=== PATIENT | female | born 1985 | race Caucasian/White ===

== ENCOUNTER 2017-05-18 09:00 | Inpatient (IN) | payer MEDICAID ==
[~2017-05-18] VITALS: Ht 172.7 cm; Wt 114.5 kg
[2017-05-18 09:26] VITALS: BP 125/64; PULSE 63; RESP 18; Ht 172.7 cm; Wt 114.5 kg
[2017-05-18] MEDS ORDERED: LACTATED RINGER'S 1,000 ML IV SCH (11:29)
[2017-05-18] MEDS ORDERED: METHYLERGONOVINE 0.2 MG INJ IM PRN (11:30)
[2017-05-18] MEDS ORDERED: OXYTOCIN 30 UNITS/LR 500 ML IV PRN (11:30)
[2017-05-18] MEDS ORDERED: LIDOCAINE 1% (MPF) 30 ML INJ INJ PRN (11:30)
[2017-05-18] MEDS ORDERED: IBUPROFEN 600 MG TAB PO PRN (11:30)
[2017-05-18] MEDS ORDERED: OXYTOCIN 30 UNITS/LR 500 ML IV SCH ×3 (11:30)
[2017-05-18] MEDS ORDERED: BUTORPHANOL 2 MG INJ IV PRN (11:30)
[2017-05-18] MEDS ORDERED: MISOPROSTOL 200 MCG TAB PR PRN (11:30)
[2017-05-18] MEDS ORDERED: CARBOPROST 250 MCG INJ IM PRN (11:30)
--- NOTE | 2017-05-18 11:59 | TRIAGE ---
OB Triage Datetime Report Generated by CPN: 05/18/2017 11:59 Datetime: 05/18/2017 10:20 Labor Evaluation Frequency: 6 Monitor Mode: External Duration (sec)2399: 50 Quality: Moderate Pattern: Normal: <= 5 Contractions in 10 Minutes Resting Tone [place]: Relaxed Heart Rate FHR Baseline Rate: 130 Monitor Mode: External US FHR Baseline Changes: No Baseline Change Variability: Moderate 6-25 bpm Accelerations: 15X15 Decelerations: None Category: Category I Datetime: 05/18/2017 09:27 Vaginal Exam Dilatation (cms): 3.0 Effacement (%): 50 Station: -4 Exam By: je abdullahic Vaginal Bleeding: None Cervix, Consistency: Soft Cervix, Position: Posterior Presentation 'A': Cephalic Datetime: 05/18/2017 09:22 Stage of : OB Triage Maternal Assessment Level of Consciousness: Fully Conscious DTR's/Clonus: DTRs 2+; No Clonus Headache: Denies Blurred Vision: No Respiratory Effort: Unlabored; Regular Rhythm; Equal Expansion Breath Sounds, Left: Clear and Equal Breath Sounds, Right: Clear and Equal Nausea/Vomiting: Denies RUQ Epigastric Pain: Denies Lower Extremities Edema: Bilateral Lower Extremities Degree: 1+ Upper Extremities Edema: None Degree: None Facial Edema: None Temperature Route: Axillary Fall Risk Assessment History of Falling: (0) No Secondary Diagnosis: (0) No Ambulatory Aid: (0) Bedrest/Nurse Assist IV Therapy: (0) No Gait: (0) Normal/Bedrest/Immobile Mental Status: (0) Oriented to Own Ability Fall Score: 0 Fall Risk Score Definition: No Risk: No action required Heart Rate FHR Baseline Rate: 130 Monitor Mode: External US Pain Assessment Pain Scale: 4 Pain Presence: Intermittent Pain Type: Contraction Pain Location: Abdomen Pain Relief Measures: Comfort Measures Datetime: 05/18/2017 09:21 EGA: 38.0 Time Provider Notified: 05/18/2017 10:20 Provider Notified: Robin Datetime: 05/18/2017 09:19 Time of Arrival: 05/18/2017 09:19 Chief Complaint: contractions Movement: Present Time Contractions Began: 05/18/2017 04:30 Rupture of Membranes: Denies Vaginal Bleeding: None Vaginal Discharge: Denies Recent Sexual Intercouse: Denies Abdominal Trauma: Not Applicable Patient Complaints: Contractions Time Provider Notified: 05/18/2017 10:00 Provider Notified: DR MERCEDES Initial Plan: efm/ gavi
[2017-05-18 12:08] LABS: ADD SCAN DIFF NO
[2017-05-18 12:28] LABS: INR 0.88; PROTIME 11.9 Sec (12.2-14.2); PT RATIO 0.9
[2017-05-18 12:36] LABS: BASOPHILS % 0.4 % (0.0-2.0); EOSINOPHILS # 0.1 10^3/ul (0.0-0.5); EOSINOPHILS % 0.7 % (0.0-7.0); HEMATOCRIT 36.3 % (37.0-47.0); HEMOGLOBIN 12.6 g/dl (12.0-16.0); LYMPHOCYTES % 24.2 % (15.0-51.0); MEAN CORPUSCULAR HEMOGLOBIN 30.4 pg (29.0-33.0); MEAN CORPUSCULAR HGB CONC 34.7 g/dl (32.0-37.0); MEAN CORPUSCULAR VOLUME 87.7 fl (82.0-101.0); MEAN PLATELET VOLUME 9.6 fl (7.4-10.4); MONOCYTE # 0.6 10^3/ul (0.3-0.9); MONOCYTES % 7.1 % (0.0-11.0); NEUTROPHIL # 5.5 10^3/ul (1.6-7.5); NEUTROPHILS % 66.9 % (39.0-77.0); PLATELET COUNT 243 10^3/UL (140-415); RED BLOOD COUNT 4.14 10^6/ul (4.20-5.40); RED CELL DISTRIBUTION WIDTH 13.2 % (11.5-14.5); WHITE BLOOD COUNT 8.2 10^3/ul (4.8-10.8)
[2017-05-18] MEDS ORDERED: LACTATED RINGER'S 1,000 ML IV PRN (13:00)
--- NOTE | 2017-05-18 17:11 | CONS ---
Date/Time of Note Date/Time of Note DATE: 05/18/17 TIME: 17:11 Assessment/Plan Assessment/Plan Additional Assessment/Plan 31 yo F with pmhx CVA sp earlier today. Hospitalist service consulted for TYSON x 2 years. Clinically headaches sound similar to migraines given unilaterality, aura, exacerbation by loud noises or bright lights. Neurologic exam at this time nonfocoal. However, given CVA hx, not unreasonable to eval for possible TIA given facial numbness episode earlier today. BP normal so no concern for preeclampsia. No reported epidural prior to delivery so no concern for spinal headache PLAN -CT head ordered by OB service -tele monitoring -check TTE -consider MRI brain -APAP/NSAIDs for pain control defer triptans for now -will check BMP in case decision is made tomorrow to pursue contrast enhanced imaging hospitalist service will cont to follow Consultation Date/Type/Reason Admit Date/Time May 18, 2017 at 11:19 Type of Consultation: hospitalist Reason for Consultation headache Referring Provider: FATMATA MERCEDES MD Hx of Present Illness 31 yo F sp earlier today with past history of ?stroke 2 yrs ago shortly after a previous with TYSON x 2 years. Pt states that after she had her last baby 2 years ago, while still in the hospital she had an episode of L sided arm/leg "paralysis" that ultimately persisted for 2 mos. She was diagnosed with a stroke and underwent extensive physical therapy with no residual deficits. She states she was told the stroke was due to stress. Since that time the patient has had frequent L sided headaches, which have been getting more frequent over the past 2 mos. Pt denies any fevers or chills. No loss of vision but does report occasional halos/auras during episodes. Also headaches are worsened by loud noises and bright lights. Has not been previously diagnosed with migraines. Pt mentioned her headaches to her OB during her and was told it was likely 2/2 dehydration. Also of note, following her delivery pt had a 2 hr episode of L sided facial tingling, no weakness and no facial droop per patient and family. No weakness. 10pROS as per HPI Past Medical History previous stroke Social History lives in the community Smoking Status: Never smoker Exam/Review of Systems Vital Signs Vitals Vital Signs Date Time Temp Pulse Resp B/P Pulse Ox O2 Delivery O2 Flow Rate FiO2 05/18/17 09:26 97.8 63 18 125/64 Room Air Exam nad, sitting up in bed EOMI MMM CN 2-12 intact-->no decreased sensation over L side of face no mrg lungs clear abd soft no le edema no hypereflexia of achilles or patellaes 5/5 strength bl U and LEs Results Result Diagram: 05/18/17 1156 Results 24 hrs Laboratory Tests Test 05/18/17 11:56 White Blood Count 8.2 Red Blood Count 4.14 L Hemoglobin 12.6 Hematocrit 36.3 L Mean Corpuscular Volume 87.7 Mean Corpuscular Hemoglobin 30.4 Mean Corpuscular Hemoglobin Concent 34.7 Red Cell Distribution Width 13.2 Platelet Count 243 Mean Platelet Volume 9.6 Neutrophils % 66.9 Lymphocytes % 24.2 Monocytes % 7.1 Eosinophils % 0.7 Basophils % 0.4 Nucleated Red Blood Cells % 0.0 Neutrophils # 5.5 Lymphocytes # 2.0 Monocytes # 0.6 Eosinophils # 0.1 Basophils # 0.0 Nucleated Red Blood Cells # 0.0 Prothrombin Time 11.9 L Prothrombin Time Ratio 0.9 INR International Normalized Ratio 0.88 Activated Partial Thromboplast Time 29.0 Hepatitis B Surface Antigen NEGATIVE Medications Medications Current Medications Lactated Ringer's 1,000 ml @ 125 mls/hr Q8H IV Last administered on 05/18/17 12:09; Admin Dose 125 MLS/HR; Start 05/18/17 at 11:29 Oxytocin/Lactated Ringer's 500 ml @ 0 mls/hr TITRATE IV Last administered on 12:34; Admin Dose 1 MLS/HR; Start 05/18/17 at 11:30 Butorphanol Tartrate (Stadol) 1 mg Q2H PRN IV PAIN; Start 05/18/17 at 11:30 Lidocaine 30 ml 30 ml ONCE PRN INJ EPISIOTOMY/TEARING; Start 05/18/17 at 11:30 Oxytocin/Lactated Ringer's 500 ml @ 125 mls/hr ONCE IV ; Start 05/18/17 at 11: 30 Ibuprofen 600 mg 600 mg ONCE PRN PO Mild Pain (Pain Score 1-3); Start 05/18/17 at 11:30 Lactated Ringer's 1,000 ml @ 2,000 mls/hr Q30M PRN IV PRE-EPIDURAL BOLUS; Start 05/18/17 at 13:00 Oxytocin/Lactated Ringer's 500 ml @ 0 mls/hr ONCE PRN IV For Hemorrhage Management; Start 05/18/17 at 11:30 Methylergonovine Maleate (Methergine) 0.2 mg ONCE PRN IM VAGINAL BLEEDING; Start 05/18/17 at 11:30 Carboprost Tromethamine (Hemabate) 250 mcg ONCE PRN IM VAGINAL BLEEDING; Start 05/18/17 at 11:30 Misoprostol (Cytotec) 1,000 mcg ONCE PRN [place] VAGINAL BLEEDING; Start 05/18/17 at 11:30 Acetaminophen (Tylenol Tab) 650 mg ONCE ONCE PO ; Start 05/18/17 at 17:30; Stop 05/18/17 at 17:31 ASHLEY MARI MD May 18, 2017 17:11
[2017-05-18] MEDS ORDERED: ACETAMINOPHEN 325 MG TAB PO ONE (17:30)
--- NOTE | 2017-05-18 17:41 | LDN ---
Date/Time of Note Date/Time of Note DATE: 05/18/17 TIME: 17:37 Delivery Summary Normal spontaneous vaginal delivery of a baby boy from OP position shoulders delivered without any difficulty rest of the baby's body followed cord was clamped after stopped pulsation placenta spontaneous expulsion inspected complete blood loss 250 cc perineal vaginal exam no laceration noted Weeks of Gestation 38 weeks Placenta Delivered: Spontaneously Meconium: none Episiotomy: No Anesthesia type: None Estimated blood loss: 250 Sponge & Needle done & correct: Yes All needle counts correct: Yes Any foreign bodies felt in the: No Problems: Delivery Information Sex Infant Sex: male Apgars 1 Minute: 8 5 Minute: 9 Suctioning Nose & mouth suctioned at neno: Yes Delee suction performed: No Umbilical Cord Umbilical cord with: 3 Vessels Cord presentations: no nuchal cord Cord Blood was obtained: Yes FATMATA MERCEDES MD May 18, 2017 17:40
--- NOTE | 2017-05-18 18:15 | HP ---
Date/Time of Note Date/Time of Note DATE: 05/18/17 TIME: 17:41 OB - History Hx of Present Free Text/Dictation 31 years old female from [facility] admitted to [facility] in labor she is a 4 para 2 SAB1, pelvic examination on admission cervix 3 cm dilated 50% effaced vertex at -3 -4 station category 1 heart rate less than 5 contractions in10 minutes This patient has been under the care of the [facility] this was not complicated with hypertension gestational diabetes or any other surgical or medical condition. Her past history total of 4 2 normal vaginal delivery 1 SAB even though patient is not a good historian but through her relatives acting as motor vehicle parts interpreter we found that ischemic brain attack, after the delivery of her baby she stated she was paralyzed on her left side was kept in the hospital for 2 days then was sent home and received physiotherapy at home recovered after 2 months she has never mentioned anything regarding her stroke during the first visit which she received at community clinic, nor in my office none is recorded in her medical history. During this her blood pressure has been within normal range and no complaint blurry vision lightheaded weakness and extremities or any warning signs and symptoms Chief Complaint: Labor pain Estimated Due Date: Jun 01, 2017 : 4 Para: 2 Spontaneous : 1 Care: Limited Care Ultrasounds: Normal mid trimester US Medical Complications: Neurological Past Family/Social History * Past Medical, Surgical, Family and Obstetric Histories reviewed from chart. Rubella: immune RPR/VDRL: Negative GBS Status: Negative HBsAG: Negative OB Admission Exam Vital Signs Vital Signs Vital Signs Date Time Temp Pulse Resp B/P Pulse Ox O2 Delivery O2 Flow Rate FiO2 05/18/17 09:26 97.8 63 18 125/64 Room Air Physical Exam HEENT: WNL Heart: Rhythm Normal Lungs: Clear, Equal Abdomen: WNL Extremities: Normal Reflexes: Normal Cervical Dilatation: 3cm Effacement: 50% Station: -2 Membranes: Intact Heart Rate: 130's Accelerations: Accelerations Present Decelerations: No Decelerations Varibility: Moderate Contractions on Admission: < 5 Minutes Apart Intensity: Moderate Last 72 hours Lab Results CBC & BMP 05/18/17 11:56 OB Assessment/Plan Reason for admission: other (Patient has a history of brain ischemia after the delivery of her last baby she will get brain scan, and neurology consult after delivering her baby) Plan: Expectant Management FATMATA MERCEDES MD May 18, 2017 17:52
--- NOTE | 2017-05-18 20:47 | RADRPT ---
PROCEDURE: CT brain without contrast CLINICAL INDICATION: Headaches, history of stroke, TECHNIQUE: CT of the brain without contrast was performed on a multidetector CT scanner, with multi planar reformats. One or more of the following dose reduction techniques were used: Automated expos ure control, adjustment in mA and / or kV according to patient size, use of iterative reconstructive technique. CTDIvol = 44 mGy; DLP = 720 mGy-cm. COMPARISON: None available FINDINGS: No acute intracranial hemorrhage is identified. No extra-axial fluid collection is seen. There is no mass effect. No midline shift is identified. Ventricles and sulci are within normal limits for size and configuration. The density of the brain is unremarkable. Quispe-white differentiation is preserved. Osseous structures are unremarkable. Mastoid air cells and imaged paranasal sinuses grossly clear. IMPRESSION: Unremarkable noncontrast CT of the brain. RPTAT: HESO .Logan Yang MD, MD Date Time Electronically viewed and signed by .Logan Yang MD, MD on 05/18/2017 20:47 .O/
[2017-05-18 22:10] VITALS: BP 127/61; PULSE 70; RESP 17
[2017-05-18] MEDS ORDERED: ACETAMINOPHEN 325 MG TAB PO PRN (23:30)
[2017-05-18] MEDS ORDERED: LANOLIN 7 GM TUBE TOP PRN (23:30)
[2017-05-18] MEDS ORDERED: ONDANSETRON 4 MG INJ IV PRN (23:30)
[2017-05-18] MEDS ORDERED: OXYCODONE/ASPIRIN (4.88/325) TAB PO PRN ×2 (23:30)
[2017-05-18] MEDS ORDERED: ACETAMINOPHEN/CODEINE #3 TAB PO PRN ×2 (23:30)
[2017-05-18] MEDS ORDERED: BENZOCAINE 20% 56 ML SPRAY TOP PRN (23:30)
[2017-05-18] MEDS ORDERED: WITCH HAZEL/GLYCERIN PAD PR PRN (23:30)
[2017-05-18] MEDS ORDERED: DIBUCAINE 1% 30 GM OINT PR PRN (23:30)
[2017-05-19 00:30] VITALS: BP 125/65; PULSE 80; RESP 17
[2017-05-19] MEDS: IBUPROFEN 600 MG TAB PO SCH ×5 (00:30→22:57)
[2017-05-19] MEDS: OXYTOCIN 30 UNITS/LR 500 ML IV SCH ×3 (01:10→05:42)
[2017-05-19 04:00] VITALS: BP 121/63; PULSE 60; RESP 17
[2017-05-19 08:30] VITALS: BP 128/55; PULSE 60; RESP 18
[2017-05-19] MEDS: SENNA/DOCUSATE NA (8.6MG/50MG) TAB PO SCH ×2 (08:47→22:57)
--- NOTE | 2017-05-19 09:59 | PN ---
Date/Time of Note Date/Time of Note DATE: 05/19/17 TIME: 09:58 OB Subjective Subjective Subjective day 1 Afebrile vital signs stable abdomen soft uterus firm lochia normal extremity normal ambulation encouraged Laboratory Tests Test 05/18/17 11:56 White Blood Count 8.210^3/ul Red Blood Count 4.1410^6/ul Hemoglobin 12.6g/dl Hematocrit 36.3% Mean Corpuscular Volume 87.7fl Mean Corpuscular Hemoglobin 30.4pg Mean Corpuscular Hemoglobin Concent 34.7g/dl Red Cell Distribution Width 13.2% Platelet Count 19538^3/UL Mean Platelet Volume 9.6fl Neutrophils % 66.9% Lymphocytes % 24.2% Monocytes % 7.1% Eosinophils % 0.7% Basophils % 0.4% Nucleated Red Blood Cells % 0.0/100WBC Neutrophils # 5.510^3/ul Lymphocytes # 2.010^3/ul Monocytes # 0.610^3/ul Eosinophils # 0.110^3/ul Basophils # 0.010^3/ul Nucleated Red Blood Cells # 0.010^3/ul Prothrombin Time 11.9Sec Prothrombin Time Ratio 0.9 INR International Normalized Ratio 0.88 Activated Partial Thromboplast Time 29.0Sec Rapid Plasma Reagin NONREACTIVE Hepatitis B Surface Antigen NEGATIVE Current Medications Medications (Trade) Dose Ordered Sig/Fawad Route PRN Reason Start Time Stop Time Status Last Admin Dose Admin Lactated Ringer's 1,000 ml @ 125 mls/hr Q8H IV 05/18/17 11:29 05/18/17 23:26 DC 05/18/17 12:09 Oxytocin/Lactated Ringer's 500 ml @ 0 mls/hr TITRATE IV 05/18/17 11:30 05/18/17 23:26 DC 05/18/17 12:34 Butorphanol Tartrate (Stadol) 1 mg Q2H PRN IV PAIN 05/18/17 11:30 05/18/17 23:26 DC Lidocaine 30 ml 30 ml ONCE PRN INJ EPISIOTOMY/TEARING 05/18/17 11:30 05/18/17 23:26 DC Oxytocin/Lactated Ringer's 500 ml @ 125 mls/hr ONCE -MAY REPEAT X1 IV 05/18/17 11:30 05/18/17 23:26 DC 05/18/17 16:57 Oxytocin/Lactated Ringer's 500 ml @ 125 mls/hr ONCE IV 05/18/17 11:30 05/18/17 23:26 DC 05/18/17 21:54 Ibuprofen 600 mg 600 mg ONCE PRN PO Mild Pain (Pain Score 1-3) 05/18/17 11:30 05/18/17 23:26 DC Lactated Ringer's 1,000 ml @ 2,000 mls/hr Q30M PRN IV PRE-EPIDURAL BOLUS 05/18/17 13:00 05/18/17 23:26 DC Oxytocin/Lactated Ringer's 500 ml @ 0 mls/hr ONCE PRN IV For Hemorrhage Management 05/18/17 11:30 05/18/17 23:26 DC Methylergonovine Maleate (Methergine) 0.2 mg ONCE PRN IM VAGINAL BLEEDING 05/18/17 11:30 Carboprost Tromethamine (Hemabate) 250 mcg ONCE PRN IM VAGINAL BLEEDING 05/18/17 11:30 Misoprostol (Cytotec) 1,000 mcg ONCE PRN [place] VAGINAL BLEEDING 05/18/17 11:30 Acetaminophen 650 mg 650 mg ONCE ONCE PO 05/18/17 17:30 05/18/17 17:31 DC 05/18/17 17:15 Oxytocin/Lactated Ringer's 500 ml @ 125 mls/hr Q4H IV 05/18/17 23:22 05/19/17 07:21 DC 05/19/17 05:42 Ibuprofen (Motrin) 600 mg Q6 PO 05/19/17 00:00 05/19/17 05:35 Acetaminophen (Tylenol Tab) 650 mg Q4H PRN PO PAIN LEVEL 1-5 05/18/17 23:30 Acetaminophen/ Codeine Phosphate (Tylenol No.3) 1 tab Q4H PRN PO PAIN LEVEL 1-5 05/18/17 23:30 Acetaminophen/ Codeine Phosphate (Tylenol No.3) 2 tab Q4H PRN PO PAIN LEVEL 6-10 05/18/17 23:30 Oxycodone/Aspirin (Percodan) 1 tab Q3H PRN PO PAIN LEVEL 1-5 05/18/17 23:30 Oxycodone/Aspirin (Percodan) 2 tab Q3H PRN PO PAIN LEVEL 6-10 05/18/17 23:30 Ondansetron HCl (Zofran Inj) 4 mg Q6H PRN IV NAUSEA AND/OR VOMITING 05/18/17 23:30 Senna/Docusate Sodium (Senokot-S) 1 tab BID PO 05/19/17 09:00 05/19/17 08:47 Witch Gudelia/ Glycerin (Tucks Pads) 1 pad BEDSIDE MEDICATION PRN WI HEMORRHOID/EPISIOTMY PAIN 05/18/17 23:30 05/19/17 00:37 Benzocaine (Dermoplast [place]) 1 spray BEDSIDE MEDICATION PRN TOP HEMORRHOID/EPISIOTMY PAIN 05/18/17 23:30 05/19/17 00:36 Dibucaine (Nupercainal) 1 applic BEDSIDE MEDICATION PRN WI HEMORRHOID/EPISIOTMY PAIN 05/18/17 23:30 Lanolin (Rot-O-Ixuhwo) 1 applic BEDSIDE MEDICATION PRN TOP BEDSIDE FOR MARIE TO NIPPLES 05/18/17 23:30 05/19/17 00:33 Measles/Mumps/ Rubella Vaccine Live (Mmr Ii Vaccine) 0.5 ml ONCE ONCE SC* 05/20/17 09:00 05/20/17 09:01 FATMATA MERCEDES MD May 19, 2017 09:58
[2017-05-19 11:02] LABS: ADD SCAN DIFF NO
[2017-05-19 11:09] LABS: BASOPHILS % 0.2 % (0.0-2.0); EOSINOPHILS # 0.1 10^3/ul (0.0-0.5); EOSINOPHILS % 0.6 % (0.0-7.0); HEMATOCRIT 33.3 % (37.0-47.0); LYMPHOCYTES # 1.8 10^3/ul (0.8-2.9); LYMPHOCYTES % 19.7 % (15.0-51.0); MEAN CORPUSCULAR HEMOGLOBIN 29.1 pg (29.0-33.0); MEAN CORPUSCULAR VOLUME 88.1 fl (82.0-101.0); MEAN PLATELET VOLUME 9.9 fl (7.4-10.4); MONOCYTE # 0.7 10^3/ul (0.3-0.9); MONOCYTES % 7.7 % (0.0-11.0); NEUTROPHIL # 6.4 10^3/ul (1.6-7.5); NEUTROPHILS % 71.1 % (39.0-77.0); PLATELET COUNT 214 10^3/UL (140-415); RED BLOOD COUNT 3.78 10^6/ul (4.20-5.40); RED CELL DISTRIBUTION WIDTH 13.5 % (11.5-14.5)
[2017-05-19 11:26] LABS: CALCIUM 8.9 mg/dl (8.4-10.2); CREATININE 0.58 mg/dl (0.44-1.00); POTASSIUM 3.8 mmol/L (3.5-5.1)
--- NOTE | 2017-05-19 11:27 | RADRPT ---
Echocardiogram Report Patient Name: HANNA LEIVA Gender: Female Date: 1985 Study Date: 19-May-2017 Casino Accountant: Leatha Diamond [facility] Location: [id number] Ref. Physician: IZA SYLVESTER Quality: Good Procedures: Transthoracic echocardiogram with complete 2D, M-Mode, and doppler examination. Indications: Transient Ischemic Attack. 2D/M Mode Doppler Measurement Value Normal Ranges Measurement Value Normal Ranges LVIDd 2D 4.4 3.5 - 5.6 cm AV Peak Yannick 1.7 m/sec LVIDs 2D 2.6 2.1 - 4.1 cm AV Peak PG 12.2 mmHg LVPWd 2D 1.0 0.6 - 1.1 cm LVOT Peak Yannick 1.1 m/sec IVSd 2D 1.0 0.6 - 1.1 cm LVOT Peak PG 4.7 mmHg AoR Diam 2D 2.3 2.0 - 3.7 cm MV E Peak Yannick 1.0 m/sec EDV 2D 88.0 cm3 MV A Peak Yannick 0.7 m/sec ESV 2D 17.4 cm3 MV E/A 1.6 LA Dimen 2D 3.4 2.3 - 4.0 cm MV Decel Time 150 msec MV Decel [place] 7 MV E/A 1.6 TR Peak Yannick 1.9 m/sec TR Peak PG 15.0 mmHg RVSP 23.0 mmHg Findings Left Ventricle: Normal left ventricular systolic function. Normal left ventricular cavity size. Normal left ventricular wall thickness. Ejection fraction is visually estimated at 55 %. Tissue Doppler/Mitral Doppler indices are within normal limits. Right Ventricle: Normal right ventricular size. Normal right ventricular systolic function. Left Atrium: The left atrium is normal in size. Right Atrium: Right atrium at upper limits of normal. Mitral Valve: Normal appearance and function of the mitral valve with trace physiologic regurgitation. Aortic Valve: Normal appearance of the aortic valve. No significant aortic stenosis or insufficiency. Tricuspid Valve: Normal appearance of the tricuspid valve. Estimated peak PA systolic pressure 35 mmHg. There is trace to mild tricuspid regurgitation. Pulmonic Valve: Normal pulmonic valve appearance. Pericardium: Normal pericardium with no significant pericardial effusion. Aorta: Normal aortic root. IVC: Normal size and normal respiratory collapse consistent with normal right atrial pressure. Conclusions 1.Normal left ventricular systolic function. Normal left ventricular cavity size. Normal left ventricular wall thickness. Ejection fraction is visually estimated at 55 %. Tissue Doppler/Mitral Doppler indices are within normal limits. 2.No significant valvular stenosis or regurgitation seen. 3.Right atrium at upper limits of normal. No obvious PFO or intracardiac shunt seen. 4.Estimated peak PA systolic pressure 35 mmHg based on RA pressure of 3 mmHg. Electronically Signed By: Tyrell Cedeno 19-May-2017 11:26:54 -0700 Patient Name: HANNA LEIVA Study Date: 19-May-2017 [id number]
--- NOTE | 2017-05-19 14:56 | PN ---
Date/Time of Note Date/Time of Note DATE: 05/19/17 TIME: 14:55 Assessment/Plan Lines/Catheters IV Catheter Type (from Nrsg): Peripheral IV Assessment/Plan Chief Complaint/Hosp Course NOTE WRONG TYPE Problems: Subjective 24 Hr Interval Summary Free Text/Dictation Azeri language line used to facilitate communication Not much improvement in headaches Exam/Review of Systems Vital Signs Vitals Vital Signs Date Time Temp Pulse Resp B/P Pulse Ox O2 Delivery O2 Flow Rate FiO2 05/19/17 08:30 98.3 60 18 128/55 Room Air Intake and Output 05/18/17 05/18/17 05/19/17 15:00 23:00 07:00 Intake Total 1000 ml 900 ml Output Total 900 ml Balance 100 ml 900 ml Exam nad, sitting up in bed no mrg lungs clear abd soft no rashes Results Result Diagram: 05/19/1755 05/19/1731 Results 24 hrs Laboratory Tests Test 05/19/17 09:31 05/19/17 09:55 Sodium Level 128 L Potassium Level 3.8 Chloride Level 101 Carbon Dioxide Level 25 Anion Gap 6 L Blood Urea Nitrogen 6 L Creatinine 0.58 Glucose Level 65 L Calcium Level 8.9 White Blood Count 9.0 Red Blood Count 3.78 L Hemoglobin 11.0 L Hematocrit 33.3 L Mean Corpuscular Volume 88.1 Mean Corpuscular Hemoglobin 29.1 Mean Corpuscular Hemoglobin Concent 33.0 Red Cell Distribution Width 13.5 Platelet Count 214 Mean Platelet Volume 9.9 Neutrophils % 71.1 Lymphocytes % 19.7 Monocytes % 7.7 Eosinophils % 0.6 Basophils % 0.2 Nucleated Red Blood Cells % 0.0 Neutrophils # 6.4 Lymphocytes # 1.8 Monocytes # 0.7 Eosinophils # 0.1 Basophils # 0.0 Nucleated Red Blood Cells # 0.0 Medications Medications Current Medications Methylergonovine Maleate (Methergine) 0.2 mg ONCE PRN IM VAGINAL BLEEDING; Start 05/18/17 at 11:30 Carboprost Tromethamine (Hemabate) 250 mcg ONCE PRN IM VAGINAL BLEEDING; Start 05/18/17 at 11:30 Misoprostol (Cytotec) 1,[address] VAGINAL BLEEDING; Start 05/18/17 at 11:30 Ibuprofen (Motrin) 600 mg Q6 PO Last administered on 05/19/17t 12:07; Admin Dose 600 MG; Start 05/19/17 at 00:00 Acetaminophen (Tylenol Tab) 650 mg Q4H PRN PO PAIN LEVEL 1-5; Start 05/18/17 at 23:30 Acetaminophen/ Codeine Phosphate (Tylenol No.3) 1 tab Q4H PRN PO PAIN LEVEL 1-5 ; Start 05/18/17 at 23:30 Acetaminophen/ Codeine Phosphate (Tylenol No.3) 2 tab Q4H PRN PO PAIN LEVEL 6- 10; Start 05/18/17 at 23:30 Oxycodone/Aspirin (Percodan) 1 tab Q3H PRN PO PAIN LEVEL 1-5; Start 05/18/17 at 23:30 Oxycodone/Aspirin (Percodan) 2 tab Q3H PRN PO PAIN LEVEL 6-10; Start 05/18/17 at 23:30 Ondansetron HCl (Zofran Inj) 4 mg Q6H PRN IV NAUSEA AND/OR VOMITING; Start 09/24 at 23:30 Senna/Docusate Sodium (Senokot-S) 1 tab BID PO Last administered on 05/19/17 08:47; Admin Dose 1 TAB; Start 05/19/17 at 09:00 Measles/Mumps/ Rubella Vaccine Live (Mmr Ii Vaccine) 0.5 ml ONCE ONCE SC* ; Start 05/20/17 at 09:00; Stop 05/20/17 at 09:01 ASHLEY MARI MD May 19, 2017 14:55 10; Start 05/18/17 at 23:30 Oxycodone/Aspirin (Percodan) 1 tab Q3H PRN PO PAIN LEVEL 1-5; Start 05/18/17 at 23:30 Oxycodone/Aspirin (Percodan) 2 tab Q3H PRN PO PAIN LEVEL 6-10; Start 05/18/17 at 23:30 Ondansetron HCl (Zofran Inj) 4 mg Q6H PRN IV NAUSEA AND/OR VOMITING; Start 09/24 at 23:30 Senna/Docusate Sodium (Senokot-S) 1 tab BID PO Last administered on 05/19/17 08:47; Admin Dose 1 TAB; Start 05/19/17 at 09:00 Measles/Mumps/ Rubella Vaccine Live (Mmr Ii Vaccine) 0.5 ml ONCE ONCE SC* ; Start 05/20/17 at 09:00; Stop 05/20/17 at 09:01 ASHLEY MARI MD May 19, 2017 14:55
[2017-05-19] MEDS ORDERED: ASA/ACETAMINOPHEN/CAFF TAB PO ONE (15:00)
--- NOTE | 2017-05-19 15:24 | CONS ---
Date/Time of Note Date/Time of Note DATE: 05/19/17 TIME: 15:23 Assessment/Plan Assessment/Plan Additional Assessment/Plan 31 yo F with pmhx CVA sp 7.11. Hospitalist service consulted for TYSON x 2 years. Clinically headaches sound similar to migraines given unilaterality, aura, exacerbation by loud noises or bright lights. Neurologic exam at this time nonfocoal. However, given CVA hx, not unreasonable to eval for possible TIA given facial numbness episode earlier today. BP normal so no concern for preeclampsia. No reported epidural prior to delivery so no concern for spinal headache Given lack of improvement with analgesics, need to rule out more serious intracranial pathology (ie sinus venous thrombosis) PLAN -neuroimaging: MRI brain wwo, MRA brain, MRA neck, MRV brain -tele monitoring/EKG -APAP/NSAIDs for pain control trial of excedrin x 1 hospitalist service will cont to follow Reference Cally Melchor et al. " headache: is your work-up complete?." [place] journal of obstetrics and gynecology 196.4 (2007): 318-e1. Consultation Date/Type/Reason Admit Date/Time May 18, 2017 at 11:19 Initial Consult Date Type of Consultation: hospitalist Referring Provider: FATMATA MERCEDES MD 24 HR Interval Summary Free Text/Dictation Nigerian language line used to facilitate communication Pt reports no improvement in headaches despite NSAIDs or APAP Exam/Review of Systems Vital Signs Vitals Vital Signs Date Time Temp Pulse Resp B/P Pulse Ox O2 Delivery O2 Flow Rate FiO2 05/19/17 08:30 98.3 60 18 128/55 Room Air Intake and Output 05/18/17 05/18/17 05/19/17 14:59 22:59 06:59 Intake Total 1000 ml 900 ml Output Total 900 ml Balance 100 ml 900 ml Exam nad, sitting up in bed no mrg lungs clear abd soft no le edema Results Result Diagram: 05/19/1755 05/19/17 0931 Results 24 hrs Laboratory Tests Test 05/19/17 09:31 05/19/17 09:55 Sodium Level 128 L Potassium Level 3.8 Chloride Level 101 Carbon Dioxide Level 25 Anion Gap 6 L Blood Urea Nitrogen 6 L Creatinine 0.58 Glucose Level 65 L Calcium Level 8.9 White Blood Count 9.0 Red Blood Count 3.78 L Hemoglobin 11.0 L Hematocrit 33.3 L Mean Corpuscular Volume 88.1 Mean Corpuscular Hemoglobin 29.1 Mean Corpuscular Hemoglobin Concent 33.0 Red Cell Distribution Width 13.5 Platelet Count 214 Mean Platelet Volume 9.9 Neutrophils % 71.1 Lymphocytes % 19.7 Monocytes % 7.7 Eosinophils % 0.6 Basophils % 0.2 Nucleated Red Blood Cells % 0.0 Neutrophils # 6.4 Lymphocytes # 1.8 Monocytes # 0.7 Eosinophils # 0.1 Basophils # 0.0 Nucleated Red Blood Cells # 0.0 Medications Medications Current Medications Methylergonovine Maleate (Methergine) 0.2 mg ONCE PRN IM VAGINAL BLEEDING; Start 05/18/17 at 11:30 Carboprost Tromethamine (Hemabate) 250 mcg ONCE PRN IM VAGINAL BLEEDING; Start 05/18/17 at 11:30 Misoprostol (Cytotec) 1,000 mcg ONCE PRN IN VAGINAL BLEEDING; Start 05/18/17 at 11:30 Ibuprofen (Motrin) 600 mg Q6 PO Last administered on 05/19/17 12:07; Admin Dose 600 MG; Start 05/19/17 at 00:00 Acetaminophen (Tylenol Tab) 650 mg Q4H PRN PO PAIN LEVEL 1-5; Start 05/18/17 at 23:30 Acetaminophen/ Codeine Phosphate (Tylenol No.3) 1 tab Q4H PRN PO PAIN LEVEL 1-5 ; Start 05/18/17 at 23:30 Acetaminophen/ Codeine Phosphate (Tylenol No.3) 2 tab Q4H PRN PO PAIN LEVEL 6- 10; Start 05/18/17 at 23:30 Oxycodone/Aspirin (Percodan) 1 tab Q3H PRN PO PAIN LEVEL 1-5; Start 05/18/17 at 23:30 Oxycodone/Aspirin (Percodan) 2 tab Q3H PRN PO PAIN LEVEL 6-10; Start 05/18/17 at 23:30 Ondansetron HCl (Zofran Inj) 4 mg Q6H PRN IV NAUSEA AND/OR VOMITING; Start 09/24 at 23:30 Senna/Docusate Sodium (Senokot-S) 1 tab BID PO Last administered on 05/19/17 08:47; Admin Dose 1 TAB; Start 05/19/17 at 09:00 Measles/Mumps/ Rubella Vaccine Live (Mmr Ii Vaccine) 0.5 ml ONCE ONCE SC* ; Start 05/20/17 at 09:00; Stop 05/20/17 at 09:01 Procedures Procedures TTE nl NCCT head nl ASHLEY MARI MD May 19, 2017 15:24
[2017-05-19 16:00] VITALS: BP 113/61; PULSE 60; RESP 18
[2017-05-19 20:00] VITALS: BP 104/56; PULSE 72; RESP 20
--- NOTE | 2017-05-19 22:41 | RADRPT ---
PROCEDURE: MR venogram. CLINICAL INDICATION: 39-week . Evaluate for venous thrombosis. TECHNIQUE: MR venography of the dural venous sinuses and cortical veins as well as proximal neck v enous vasculature performed with 2-D [id number], MIPPED, and 3-D reconstructed images. COMPARISON: No prior studies are available for comparison. FINDINGS: Nonspecific narrowing of the inferior portion of the superior sagittal sinus just above the torcular herophili, likely flow-related. No evidence of occlusion. There is trace flow noted in the inferio r sagittal sinus. This may be developmental in nature or reflect partial occlusion. The transverse sinuses, sagittal sinus, straight sinus, vena cava, internal cerebral veins, and cortical draining veins are otherwise patent without evidence of dural venous or cortical venous thrombosis. The sigmoid sinuses, internal jugular bulbs, and proximal internal jugular veins are patent without filling defect to suggest venous thrombosis. IMPRESSION: 1. Nonspecific narrowing of the inferior portion of the superior sagittal sinus likely flow related , however, nonocclusive thrombus cannot be excluded. Trace flow demonstrated in the inferior sagit leland sinus. This may reflect slow flow are partial occlusion . The remaining dural venous sinuses a nd cortical veins are patent. 2. Contrast-enhanced MRI of the brain is recommended for further evaluation with diffusion weighted sequences RPTAT:AAJJ Physician Katia Date Time Electronically viewed and signed by Physician Katia on 05/19/2017 22:41 LIAN/
--- NOTE | 2017-05-19 22:51 | RADRPT ---
PROCEDURE: MR Brain with and without contrast, MRA brain with and without contrast, MRA neck with and without contrast. CLINICAL INDICATION: There is an old female with TIA/ headache. TECHNIQUE: An MRI of the brain was performed with and without contrast utilizing the following seq uences: Sagittal T1 weighted, sagittal FLAIR, axial T1, axial FLAIR, axial T2 weighted, axial diffu dora weighted (EPI technique [id number]), axial ADC mapping, and post contrast axial and coronal T1 weig hted, and axial FLAIR. MRA head: 3-D [id number] imaging with and without contrast through the c erebral vasculature with MIP reconstructions. MRA neck: An MRA of the major cervical arteries was p erformed with and without contrast utilizing axial 2D time of flight. Source and MIPPED images were reviewed. 20 cc of Magnevist was given intravenously without complication. Images were reviewed on a high-resolution PACS workstation. COMPARISON: No prior studies are available for comparison. FINDINGS: MRI brain: Diffusion weighted sequences demonstrate no evidence of acute lacunar or lobar infarctio n. There is no intracranial hemorrhage, extra-axial fluid collection, mass lesion, midline shift or hydrocephalous. The ventricles, sulci and cisterns are normal in size and configuration. The basal cisterns are patent. The signal intensity is normal throughout the cerebrum, brain stem and cerebe llum. Normal flow voids are visible the proximal intracranial arteries and dural sinuses, indicatin g patency. The midline structures are intact. The postcontrast images demonstrate diffuse pachymeni ngeal enhancement involving the leptomeninges of the bilateral cerebral hemispheres as well as the t entorial leaflet. No focal areas of nodular enhancement are seen. There is homogeneous enhancement in the pituitary gland. No evidence of pituitary apoplexy. The paranasal sinuses, mastoid air cells and middle ear cavities are normally aerated. The orbits, calvarium and extracranial soft tissues are normal in appearance. MRA head: Anterior circulation: The petrous and cavernous segments of the internal carotid arterie s are normal in appearance. The supraclinoid internal carotid arteries are normal in appearance. T he middle and anterior cerebral arteries as well as their branches are normal. The anterior communi cating artery is patent. The right posterior communicating artery is patent. There is origin of the left posterior cerebral artery, normal variant. Posterior circulation: The vertebral arteries are codominant. The basilar artery and its branches are normal in appearance. The posterior cerebral arteries are normal in appearance. There is no an eurysm, hemodynamically significant stenosis or vascular malformation. Limited visualization of the remaining brain parenchyma is unremarkable. There is no intracranial hemorrhage, mass lesion or hy drocephalous. MRA neck: The common carotid arteries are patent and normal in caliber. The carotid bulbs appear n ormal, and no hemodynamically significant stenosis is evident within either internal carotid artery. The cervical segments of the internal carotid arteries are normal in appearance. The vertebral arteries are patent and normal in caliber bilaterally. The vertebral arteries are cod ominant There is no evidence of vascular stenosis, dissection, aneurysm or occlusion. The visualized neck soft tissues are unremarkable. IMPRESSION: 1. Diffuse patchy meningeal enhancement overlying the bilateral cerebral hemispheres, which is nons pecific. This is most suggestive of etiologies such as intracranial hypotension with other etiologi es including idiopathic pachymeningitis not excluded. Correlation with possible CSF leak is recommen ded. 2. No acute intracranial abnormality. No intracranial hemorrhage, enhancing mass lesion, infarctio n or hydrocephalous. No evidence of pituitary apoplexy. 3. Normal MRA of the head with and without contrast. No aneurysm, hemodynamically significant sten osis or vascular malformation. 4. Normal MRA of the neck with and without contrast. No aneurysm, dissection or hemodynamically si gnificant stenosis. RPTAT: HGAS .Marciano Dejesus MD, MD Date Time Electronically viewed and signed by .Marciano Dejesus MD, on 05/19/2017 22:50 .S/
--- NOTE | 2017-05-19 22:52 | RADRPT ---
PROCEDURE: MR Brain with and without contrast, MRA brain with and without contrast, MRA neck with and without contrast. CLINICAL INDICATION: 31-year-old female with TIA/ headache. TECHNIQUE: An MRI of the brain was performed with and without contrast utilizing the following seq uences: Sagittal T1 weighted, sagittal FLAIR, axial T1, axial FLAIR, axial T2 weighted, axial diffu dora weighted (EPI technique [id number]), axial ADC mapping, and post contrast axial and coronal T1 weig hted, and axial FLAIR. MRA head: 3-D [id number] imaging with and without contrast through the c erebral vasculature with MIP reconstructions. MRA neck: An MRA of the major cervical arteries was p erformed with and without contrast utilizing axial 2D time of flight. Source and MIPPED images were reviewed. 20 cc of Magnevist was given intravenously without complication. Images were reviewed on a high-resolution PACS workstation. COMPARISON: No prior studies are available for comparison. FINDINGS: MRI brain: Diffusion weighted sequences demonstrate no evidence of acute lacunar or lobar infarctio n. There is no intracranial hemorrhage, extra-axial fluid collection, mass lesion, midline shift or hydrocephalous. The ventricles, sulci and cisterns are normal in size and configuration. The basal cisterns are patent. The signal intensity is normal throughout the cerebrum, brain stem and cerebe llum. Normal flow voids are visible the proximal intracranial arteries and dural sinuses, indicatin g patency. The midline structures are intact. The postcontrast images demonstrate diffuse pachymeni ngeal enhancement involving the leptomeninges of the bilateral cerebral hemispheres as well as the t entorial leaflet. No focal areas of nodular enhancement are seen. There is homogeneous enhancement in the pituitary gland. No evidence of pituitary apoplexy. The paranasal sinuses, mastoid air cells and middle ear cavities are normally aerated. The orbits, calvarium and extracranial soft tissues are normal in appearance. MRA head: Anterior circulation: The petrous and cavernous segments of the internal carotid arterie s are normal in appearance. The supraclinoid internal carotid arteries are normal in appearance. T he middle and anterior cerebral arteries as well as their branches are normal. The anterior communi cating artery is patent. The right posterior communicating artery is patent. There is origin of the left posterior cerebral artery, normal variant. Posterior circulation: The vertebral arteries are codominant. The basilar artery and its branches are normal in appearance. The posterior cerebral arteries are normal in appearance. There is no an eurysm, hemodynamically significant stenosis or vascular malformation. Limited visualization of the remaining brain parenchyma is unremarkable. There is no intracranial hemorrhage, mass lesion or hy drocephalous. MRA neck: The common carotid arteries are patent and normal in caliber. The carotid bulbs appear n ormal, and no hemodynamically significant stenosis is evident within either internal carotid artery. The cervical segments of the internal carotid arteries are normal in appearance. The vertebral arteries are patent and normal in caliber bilaterally. The vertebral arteries are cod ominant There is no evidence of vascular stenosis, dissection, aneurysm or occlusion. The visualized neck soft tissues are unremarkable. IMPRESSION: 1. Diffuse patchy meningeal enhancement overlying the bilateral cerebral hemispheres, which is nons pecific. This is most suggestive of etiologies such as intracranial hypotension with other etiologi es including idiopathic pachymeningitis not excluded. Correlation with possible CSF leak is recommen ded. 2. No acute intracranial abnormality. No intracranial hemorrhage, enhancing mass lesion, infarctio n or hydrocephalous. No evidence of pituitary apoplexy. 3. Normal MRA of the head with and without contrast. No aneurysm, hemodynamically significant sten osis or vascular malformation. 4. Normal MRA of the neck with and without contrast. No aneurysm, dissection or hemodynamically si gnificant stenosis. RPTAT: HGAS .Marciano Dejesus MD, MD Date Time Electronically viewed and signed by .Marciano Dejesus MD, on 05/19/2017 22:51 .S/
[2017-05-20] MEDS: IBUPROFEN 600 MG TAB PO SCH ×3 (05:38→18:00)
[2017-05-20 08:20] VITALS: BP 121/54; PULSE 57; RESP 16
[2017-05-20] MEDS ORDERED: MEASLES,MUMPS,RUBELLA VACCINE INJ SC* ONE (09:00)
[2017-05-20] MEDS: SENNA/DOCUSATE NA (8.6MG/50MG) TAB PO SCH (09:59)
--- NOTE | 2017-05-20 11:15 | CONS ---
Date/Time of Note Date/Time of Note DATE: 05/20/17 TIME: 11:13 Assessment/Plan Assessment/Plan Additional Assessment/Plan BRIEF NOTE Pt not personally seen today Neuroimaging results reviewed. Findings highly nonspecific. Suspect etio of pt' s headaches is migraines, but given nonspecific findings, I have placed a consult to neurology service/Dr Isai Hunt for further eval Hospitalist service will cont to follow Consultation Date/Type/Reason Admit Date/Time May 18, 2017 at 11:19 Type of Consultation: hospitalist Referring Provider: FATMATA MERCEDES MD Exam/Review of Systems Vital Signs Vitals Vital Signs Date Time Temp Pulse Resp B/P Pulse Ox O2 Delivery O2 Flow Rate FiO2 05/20/17 08:20 97.9 57 16 121/54 Room Air Results Result Diagram: 05/19/17 0955 05/19/17 0931 Medications Medications Current Medications Methylergonovine Maleate (Methergine) 0.2 mg ONCE PRN IM VAGINAL BLEEDING; Start 05/18/17 at 11:30 Carboprost Tromethamine (Hemabate) 250 mcg ONCE PRN IM VAGINAL BLEEDING; Start 05/18/17 at 11:30 Misoprostol (Cytotec) 1,000 mcg ONCE PRN [place] VAGINAL BLEEDING; Start 05/18/17 at 11:30 Ibuprofen (Motrin) 600 mg Q6 PO Last administered on 05/20/17t 05:38; Admin Dose 600 MG; Start 05/19/17 at 00:00 Acetaminophen (Tylenol Tab) 650 mg Q4H PRN PO PAIN LEVEL 1-5; Start 05/18/17 at 23:30 Acetaminophen/ Codeine Phosphate (Tylenol No.3) 1 tab Q4H PRN PO PAIN LEVEL 1-5 ; Start 05/18/17 at 23:30 Acetaminophen/ Codeine Phosphate (Tylenol No.3) 2 tab Q4H PRN PO PAIN LEVEL 6- 10; Start 05/18/17 at 23:30 Oxycodone/Aspirin (Percodan) 1 tab Q3H PRN PO PAIN LEVEL 1-5; Start 05/18/17 at 23:30 Oxycodone/Aspirin (Percodan) 2 tab Q3H PRN PO PAIN LEVEL 6-10; Start 05/18/17 at 23:30 Ondansetron HCl (Zofran Inj) 4 mg Q6H PRN IV NAUSEA AND/OR VOMITING; Start 09/24 at 23:30 Senna/Docusate Sodium (Senokot-S) 1 tab BID PO Last administered on 05/20/17t 09:59; Admin Dose 1 TAB; Start 05/19/17 at 09:00 ASHLEY MARI MD May 20, 2017 11:15
--- NOTE | 2017-05-20 12:21 | DS ---
Date/Time of Note Date/Time of Note DATE: 05/20/17 TIME: 12:16 Discharge Summary Admission/Discharge Info Admit Date/Time May 18, 2017 at 11:19 Discharge Date/Time May 20, 2017 at 12:15 PM Discharge Diagnosis Day 2 post normal vaginal delivery Patient Condition: Good Consults Neurology consult Procedures Normal vaginal delivery, brain MRI, history of headache and TIA with last , will be followed that neurology clinic Hx of Present Illness Term normal vaginal delivery Hospital Course Unremarkable no complaint of headache blurry vision extremities weakness, refer to MRI report Follow-up Plan follow-up in the office and follow up with neurologist in outpatient basis Primary Care Provider Care Physician FATMATA Reilly MD May 20, 2017 12:20
--- NOTE | 2017-05-20 16:34 | RADRPT ---
Vent Rate: 60 bpm RR Interval: 0 msec [place] Interval: 156 msec QRS Duration: 94 msec QT Interval: 406 msec QTC Interval: 406 msec P-R-T [place]: 39 - 40 - 47 degrees Normal sinus rhythm Low voltage QRS Incomplete right bundle branch block Borderline ECG Electronically Signed By: Daniel Purvis [id number]
== END 2017-05-20 19:00 | disposition home or self-care (01) | DRG 774 ==
LOC: L-D 09:00 → OBT 09:00 → L-D 11:19 → PP1 22:18
PROVIDERS: ADMIT Obstetrics & Gynecology; ATTEND Obstetrics & Gynecology
PROC: 10E0XZZ Delivery of Products of Conception, External Approach (ICD-10-PCS; principal; 2017-05-18)
PROC: 4A1HX4Z Monitoring of Products of Conception, Cardiac Electrical Activity, External Approach (ICD-10-PCS; 2017-05-18)
DX: O90.89 Other complications of the puerperium, not elsewhere classified (principal); R20.2 Paresthesia of skin; Z37.0 Single live birth; Z3A.38 38 weeks gestation of pregnancy; Z86.73 Personal history of transient ischemic attack (TIA), and cerebral infarction without residual deficits
CPT/HCPCS: 70450; 70546; 70549; 70551; 70553; 80048; 85025; 85610; 85730; 86592; 86900; 86901; 87340; 88307; 93005; 93306; 99464; G0463; J2590; J7120

== ENCOUNTER 2019-09-03 06:31 | Inpatient (IN) | payer OTHER ==
[~2019-09-03] VITALS: Ht 165.1 cm; Wt 118.5 kg
[2019-09-03 06:38] VITALS: Ht 165.1 cm; Wt 118.5 kg
[2019-09-03] MEDS ORDERED: LACTATED RINGER'S 1,000 ML IV PRN (06:40)
[2019-09-03] MEDS ORDERED: LACTATED RINGER'S 1,000 ML IV SCH (06:40)
[2019-09-03] MEDS ORDERED: AMPICILLIN 2 GM/NS (PMX) 100 ML IV ONE (07:00)
[2019-09-03] MEDS ORDERED: OXYTOCIN 30 UNITS/LR 500 ML IV PRN ×2 (07:00→10:30)
[2019-09-03] MEDS ORDERED: MISOPROSTOL 200 MCG TAB PR PRN ×2 (07:00→10:30)
[2019-09-03] MEDS ORDERED: LIDOCAINE 1% (MPF) 30 ML INJ INJ PRN (07:00)
[2019-09-03] MEDS ORDERED: CARBOPROST 250 MCG INJ IM PRN ×2 (07:00→10:30)
[2019-09-03] MEDS ORDERED: BUTORPHANOL 2 MG INJ IV PRN (07:00)
[2019-09-03] MEDS ORDERED: METHYLERGONOVINE 0.2 MG INJ IM PRN ×2 (07:00→10:30)
[2019-09-03] MEDS ORDERED: MINERAL OIL LIGHT 10 ML VIAL TOP PRN (07:00)
[2019-09-03] MEDS ORDERED: OXYTOCIN 30 UNITS/LR 500 ML IV SCH ×3 (07:00→10:09)
[2019-09-03] MEDS ORDERED: IBUPROFEN 800 MG TAB GTB PRN (08:15)
[2019-09-03 10:00] VITALS: BP 129/61; PULSE 69; RESP 18
[2019-09-03] MEDS ORDERED: LANOLIN HPA 1 PKT TOP PRN (10:30)
[2019-09-03] MEDS ORDERED: WITCH HAZEL/GLYCERIN PAD PR PRN (10:30)
[2019-09-03] MEDS ORDERED: ZOLPIDEM 5 MG TAB PO PRN (10:30)
[2019-09-03] MEDS ORDERED: NACL 0.9% 3 ML SYG IV SCH (10:30)
[2019-09-03] MEDS ORDERED: SENNA/DOCUSATE NA (8.6MG/50MG) TAB PO PRN (10:30)
[2019-09-03] MEDS ORDERED: AMPICILLIN 1 GM/NS (PMX) 50 ML IV SCH (11:00)
[2019-09-03] MEDS: IBUPROFEN 600 MG TAB PO SCH ×2 (11:26→17:12)
[2019-09-03 12:29] VITALS: BP 122/61; PULSE 62; RESP 18
[2019-09-03 15:50] VITALS: BP 109/57; PULSE 67; RESP 18
[2019-09-03] MEDS: SENNA/DOCUSATE NA (8.6MG/50MG) TAB PO SCH (20:07)
[2019-09-03 20:10] VITALS: BP 123/61; PULSE 72; RESP 18
[2019-09-03 23:45] VITALS: BP 121/61; PULSE 71; RESP 18
[2019-09-04] VITALS (19 sets, daily range): BP systolic 117–178; BP diastolic 64–85; PULSE 56–79; RESP 0–30
[2019-09-04] MEDS: IBUPROFEN 600 MG TAB PO SCH ×5 (05:20→23:44)
[2019-09-04] MEDS: SENNA/DOCUSATE NA (8.6MG/50MG) TAB PO SCH ×2 (09:00→20:45)
[2019-09-04] MEDS ORDERED: LACTATED RINGER'S 1,000 ML IV PRN (10:00)
[2019-09-04] MEDS ORDERED: CELECOXIB 200 MG CAP PO ONE (11:00)
[2019-09-04] MEDS ORDERED: GABAPENTIN 300 MG CAP PO ONE (11:00)
[2019-09-04] MEDS ORDERED: ACETAMINOPHEN 500 MG TAB PO SCH (11:00)
[2019-09-04] MEDS: LACTATED RINGER'S 1,000 ML IV SCH (16:27)
[2019-09-04] MEDS ORDERED: SEVOFLURANE 15 MIN ONE (17:00)
[2019-09-04] MEDS ORDERED: MIDAZOLAM 1 MG/ML 2 ML INJ ONE (17:00)
[2019-09-04] MEDS ORDERED: FENTAnyl 50 MCG/ML VIAL ONE ×2 (17:00→17:26)
[2019-09-04] MEDS ORDERED: LIDOCAINE 1% (MDV) 20 ML INJ ONE (17:13)
[2019-09-04] MEDS ORDERED: PROPOFOL 20 ML ONE (17:20)
[2019-09-04] MEDS ORDERED: CEFAZOLIN 1 GM INJ ONE (17:20)
[2019-09-04] MEDS ORDERED: DEXAMETHASONE 4 MG/ML 5 ML INJ ONE (17:29)
[2019-09-04] MEDS ORDERED: ONDANSETRON 4 MG INJ ONE (17:30)
[2019-09-04] MEDS ORDERED: ROCURONIUM 50 MG INJ ONE (17:34)
[2019-09-04] MEDS ORDERED: BUPIVACAINE 0.25% (MPF) 30 ML INJ ONE (17:43)
[2019-09-04] MEDS ORDERED: OXYCODONE/ACETAMINOPHEN (5/325) TAB PO PRN ×2 (18:30)
[2019-09-04] MEDS ORDERED: FENTAnyl 50 MCG/ML VIAL IV PRN ×2 (18:30)
[2019-09-04] MEDS ORDERED: MEPERIDINE 25 MG INJ IV PRN (18:30)
[2019-09-04] MEDS ORDERED: METOCLOPRAMIDE 10 MG INJ IV PRN (18:30)
[2019-09-04] MEDS ORDERED: HYDROmorphONE 1 MG/5 ML IV SYRINGE IV PRN ×3 (18:30)
[2019-09-04] MEDS ORDERED: KETOROLAC 30 MG INJ IV PRN (18:30)
[2019-09-04] MEDS ORDERED: ALBUTEROL 0.083% (NEB) 2.5 MG/3 ML AMP HHN PRN (18:30)
[2019-09-04] MEDS ORDERED: DIPHENHYDRAMINE 50 MG INJ IV PRN (18:30)
[2019-09-04] MEDS ORDERED: ONDANSETRON 4 MG INJ IV PRN (18:30)
[2019-09-04] MEDS: FENTAnyl 50 MCG/ML VIAL IV PRN ×2 (18:36→18:41)
[2019-09-04] MEDS: OXYCODONE/ASPIRIN (4.88/325) TAB PO PRN (20:45)
[2019-09-05] VITALS: BP 130/78; PULSE 70; RESP 18
[2019-09-05] MEDS: LACTATED RINGER'S 1,000 ML IV SCH
[2019-09-05 00:04] VITALS: BP 140/64; PULSE 60; PULSE 66; RESP 18
[2019-09-05 04:20] VITALS: BP_SYST 128; BP_SYST 140; BP_DIAS 60; BP_DIAS 78; PULSE 60; PULSE 64; PULSE 78; RESP 18
[2019-09-05] MEDS: OXYCODONE/ASPIRIN (4.88/325) TAB PO PRN (04:40)
[2019-09-05] MEDS: IBUPROFEN 600 MG TAB PO SCH ×2 (05:52→11:52)
[2019-09-05 08:00] VITALS: BP 111/52; PULSE 62; RESP 18
[2019-09-05] MEDS ORDERED: DIPHTH/TET/ACEL PERTUSS (ADULT) 0.5 ML VIAL IM* ONE (09:00)
[2019-09-05 09:23] VITALS: BP 111/52; PULSE 62; RESP 18
[2019-09-05] MEDS: SENNA/DOCUSATE NA (8.6MG/50MG) TAB PO SCH (10:48)
[2019-09-05 20:00] VITALS: BP 140/88; PULSE 66; RESP 18
[2019-09-06] VITALS: BP 130/76; PULSE 70; RESP 18
== END 2019-09-05 16:58 | disposition home or self-care (01) | DRG 798 ==
LOC: OBT 06:31 → L-D 06:32 → OBT 06:40 → L-D 06:40 → PP1 09:55
PROVIDERS: ADMIT Obstetrics & Gynecology; ATTEND Obstetrics & Gynecology
PROC: 10E0XZZ Delivery of Products of Conception, External Approach (ICD-10-PCS; principal; 2019-09-03)
PROC: 0UT74ZZ Resection of Bilateral Fallopian Tubes, Percutaneous Endoscopic Approach (ICD-10-PCS; 2019-09-04)
DX: O80 Encounter for full-term uncomplicated delivery (principal); Z37.0 Single live birth; Z3A.39 39 weeks gestation of pregnancy; Z30.2 Encounter for sterilization
CPT/HCPCS: 80053; 80307; 81001; 84560; 85025; 85610; 85730; 86592; 86703; 86762; 86850; 86900; 86901; 87086; 87340; 88302; J0290; J0690; J1100; J1170; J2250; J2405; J2590; J3010; J7120